=== PATIENT | female | born 1990 | race African-American/Black ===

== ENCOUNTER 2018-12-14 23:01 | Observation (INO) | payer OTHER ==
[2018-12-14] MEDS ORDERED: NS 0.9% 1000 ML** 1,000 ML IV ONE (23:43)
--- NOTE | 2018-12-14 23:57 | ED ---
Syncope/Near Syncope - History Of Current Complaint Chief Complaint: EDDiabeticProb Time Seen by Provider: 12/14/18 23:43 - Allergies/Home Medications Allergies/Adverse Reactions: Allergies Allergy/AdvReac Type Severity Reaction Status Date / Time morphine Allergy Anaphylatic Verified 12/14/18 23:10 Shock Penicillins Allergy Rash Verified 12/14/18 23:10 PMH/Surg Hx/FS Hx/Imm Hx Previously Healthy: Yes Cardiovascular History: Denies: Hx Hypertension Psychiatric History: Reports: Hx Anxiety, Hx Depression - Surgical History Surgical History: Yes Surgery Procedure, Year, and Place: 2 C sections: 11/06/10, 01/27/13,. summer 2008 - Immunization History Immunizations Up to Date: Yes Infectious Disease History: Yes Infectious Disease History: Denies: Traveled Outside the [place] in Last 30 Days - Family History Known Family History: Positive: Diabetes - paternal side - Social History Occupation: Unemployed Lives: With Family Alcohol Use: Rare Hx Substance Use: No Substance Use Type: Reports: None Hx Tobacco Use: No Smoking Status (MU): Never Smoked Tobacco Physical Exam Vital Signs On Initial Exam: Initial Vitals Temp Pulse Resp BP Pulse Ox 97.5 F 80 18 148/94 97 12/14/18 23:09 12/14/18 23:09 12/14/18 23:09 12/14/18 23:09 12/14/18 23:09 Diagnostics - Vital Signs Vital Signs Temp Pulse Resp BP Pulse Ox 12/14/18 23:09 97.5 F 80 18 148/94 97 - Laboratory Lab Statement: Any lab studies that have been ordered have been reviewed, and results considered in the medical decision making process. - Attestation Statements Document Initiated by Scribe: Yes
--- NOTE | 2018-12-15 00:22 | ED ---
HPI Diabetic - HPI Summary HPI Summary: This pt is a 28 Y/O F presenting to [facility] with a CC of high blood sugar. She states that she has been feeling sick the onset of her symptoms. She stated that she had her friend bring over a blood glucose test which found that she had a blood sugar of 600. She stated that her symptoms appeared 3 weeks ago. She states that she has had extreme fatigue, light headedness, insomnia, incontinence and extreme thirst since the onset. She also states that she had a yeast infection 2 weeks ago. She also states that for a week and a half she has been having decreased appetite, nausea, weight loss, and lethargy. One week ago she started experiencing diarrhea and vomiting. She also reports constant stomach aches that are rated a 10/10 in severity, and visual changes described as blurry vision and burning eyes. Per triage her blood glucose level is 779. She has no aggravating or alleviating symptoms. She has a FHx of diabetes on her father side, but she is unsure if they took insulin. - History Of Current Complaint Chief Complaint: EDDiabeticProb Time Seen by Provider: 12/14/18 23:43 Hx Obtained From: Patient Hx Last Menstrual Period: Pt has an implant, 3 years ago Last Known Well Date: 3 weeks ago Onset/Duration: Sudden Onset, Lasting Weeks - 3, Still Present, Worse Since Timing: Constant Severity Initially: Moderate Severity Currently: Severe Character: Lethargic Aggravating: Nothing Alleviating: Nothing Associated Signs & Symptoms: Abdominal Pain, Diarrhea, Nausea, Vomiting, Weight Loss Related History: Other - paternal side has Hx of DM - Allergies/Home Medications Allergies/Adverse Reactions: Allergies Allergy/AdvReac Type Severity Reaction Status Date / Time morphine Allergy Anaphylatic Verified 12/14/18 23:10 Shock Penicillins Allergy Rash Verified 12/14/18 23:10 Home Medications: Home Medications NK [No Home Medications Reported] 12/15/18 [History Confirmed 12/15/18] PMH/Surg Hx/FS Hx/Imm Hx Previously Healthy: Yes Endocrine/Hematology History: Denies: Hx Diabetes Cardiovascular History: Denies: Hx Hypertension - Surgical History Surgical History: Yes Surgery Procedure, Year, and Place: C-sections x2. Infectious Disease History: Yes Infectious Disease History: Denies: Traveled Outside the [place] in Last 30 Days - Family History Known Family History: Positive: Diabetes - paternal side - Social History Occupation: Unemployed Lives: With Family Alcohol Use: Rare Hx Substance Use: No Substance Use Type: Reports: None Hx Tobacco Use: No Smoking Status (MU): Never Smoked Tobacco Review of Systems Constitutional: Other - POSITIVE: light headed, extreme thirst, incontinence, insomnia, weight loss, lethargic Positive: Fatigue Positive: Blurred Vision, Other - POSITIVE: burning sensation in her eyes Gastrointestinal: Other - decreased appetite Positive: Abdominal Pain, Vomiting, Diarrhea, Nausea Positive: Anxious All Other Systems Reviewed And Are Negative: Yes Physical Exam - Summary Physical Exam Summary: General: Well-developed, Obese black female. No acute distress. HEENT: Normocephalic, Atraumatic. Eyes: Conjuctiva normal, PERRL. Ears: TMs within normal limits. Nares: (-) discharge, (-) erythema. Oropharynx: Clear, mucous membranes moist, (-) exudates. Neck: Soft, FROM, (-) lymphadenopathy, (-) thyromegaly, (-) JVD. Cardiovascular: Normal sinus rhythm, (-) murmur. Lungs: Clear to auscultation bilaterally (-) wheezes, (-) rales, (-) rhonchi. Abdomen: Soft, non-tender, non-distended, (-) organomegaly, normal bowel sounds. Back: (-) CVA tenderness Extremities: No edema. Skin: Warm, dry, (-) rash. Neuro: Alert and oriented x3, no focal deficits. Psychiatric: Mood normal, affect normal. Triage Information Reviewed: Yes Vital Signs On Initial Exam: Initial Vitals Temp Pulse Resp BP Pulse Ox 97.5 F 80 18 148/94 97 12/14/18 23:09 12/14/18 23:09 12/14/18 23:09 12/14/18 23:09 12/14/18 23:09 Vital Signs Reviewed: Yes Diagnostics - Vital Signs Vital Signs Temp Pulse Resp BP Pulse Ox 12/15/18 00:00 19 12/14/18 23:47 75 140/90 97 12/14/18 23:46 76 99 12/14/18 23:09 97.5 F 80 18 148/94 97 - Laboratory Lab Results: Lab Results 12/14/18 Range/Units 23:27 Glucose Meter Confirm 774 H* (70-100) mg/dL Result Diagrams: 12/15/18 00:00 12/15/18 00:00 Lab Statement: Any lab studies that have been ordered have been reviewed, and results considered in the medical decision making process. Diabetic Course/Dx - Course Course Of Treatment: This pt is a 28 Y/O F presenting to [facility] with a CC of high blood sugar. She states that she has been feeling sick the onset of her symptoms. She stated that she had her friend bring over a blood glucose test which found that she had a blood sugar of 600. She stated that her symptoms appeared 3 weeks ago. She states that she has had extreme fatigue, light headedness, insomnia, incontinence and extreme thirst since the onset. She also states that she had a yeast infection 2 weeks ago. She also states that for a week and a half she has been having decreased appetite, nausea, weight loss, and lethargy. One week ago she started experiencing diarrhea and vomiting. She also reports constant stomach aches that are rated a 10/10 in severity, and visual changes described as blurry vision and burning eyes. Per triage her blood glucose level is 779. She stated that her paternal side has a Hx of diabetes. Her PE found that she was obese and all other aspects are normal. - Diagnoses Provider Diagnoses: Diabetes - Physician Notifications Discussed Care Of Patient With: Francisco Palomares Time Discussed With Above Provider: 00:30 Instructed by Provider To: Admit As Inpatient Admit/Transition Orders Completed By ED Provider: Yes Discharge ED - Sign-Out/Discharge Documenting (check all that apply): Patient Departure - admited Patient Received Moderate/Deep Sedation with Procedure: No - Discharge Plan Condition: Stable Disposition: ADMITTED TO [facility] Referrals: No Primary Care Phys,NOPCP [Primary Care Provider] - - Billing Disposition and Condition Condition: STABLE Disposition: Admitted to [facility] - Attestation Statements Document Initiated by Scribe: Yes Documenting Scribe: Quinten Reynaga Provider For Whom Scribe is Documenting (Include Credential): Rosa Mathew MD Scribe Attestation: Quinten Armijo, scribed for Rosa Mathew MD on 12/15/18 at 0635. Scribe Documentation Reviewed: Yes Provider Attestation: The documentation as recorded by the Quinten villatoro accurately reflects the service I personally performed and the decisions made by me, Rosa Mathew MD Status of Scribe Document: Viewed
[2018-12-15 00:29] LABS: ABS Basophils 0.1 10^3/ul (0-0.2); ABS Eosinophils 0.1 10^3/ul (0-0.6); ABS Lymphocytes 2.9 10^3/ul (1.0-4.8); ABS Monocytes 0.5 10^3/ul (0-0.8); ABS Neutrophils 3.3 10^3/ul (1.5-7.7); Eosinophil % 1.4 %; Hematocrit 43 % (35-47); Hemoglobin 14.1 g/dL (12.0-16.0); Lymphocyte % 42.4 %; Mean Corpuscular HGB Conc 33 g/dL (31-36); Mean Corpuscular Hemoglobin 28 pg (27-31); Mean Corpuscular Volume 84 fL (80-97); Mean Platelet Volume 11.2 fL (7.4-10.4); Nucleated Red Blood Cells % 0.2; Platelet Count 220 10^3/uL (150-450); Red Cell Distribution Width 15 % (10-15); White Blood Count 6.8 10^3/uL (3.5-10.8)
[2018-12-15 00:34] LABS: INR 0.91 (0.82-1.09)
[2018-12-15] MEDS ORDERED: Ketorolac INJ* 30 MG/ML 1 ML VIAL IV PUSH ONE (00:36)
[2018-12-15] MEDS ORDERED: Ondansetron INJ* 2 MG/ML VIAL IV ONE (00:37)
[2018-12-15 00:46] LABS: Urine Appearance Clear; Urine Bacteria Absent (Absent); Urine Bilirubin Negative (Negative); Urine Blood 1+ (Negative); Urine Color Straw; Urine Glucose 3+(>=500 mg/dL) (Negative); Urine Ketones 1+ (Negative); Urine Nitrite Negative (Negative); Urine Protein Negative (Negative); Urine Red Blood Cell Trace(0-2/hpf) (Absent); Urine Specific Gravity 1.031 (1.010-1.030); Urine Squamous Epithelial Cell Present (Absent); Urine Urobilinogen Negative (Negative); Urine White Blood Cell Absent (Absent)
[2018-12-15 00:52] LABS: ALT 23 U/L (7-52); AST 17 U/L (13-39); Albumin/Globulin Ratio 1.3 (1-3); Alkaline Phosphatase 104 U/L (34-104); Anion Gap 9 mmol/L (2-11); BUN/Creatinine Ratio 9.6 (8-20); Blood Urea Nitrogen 9 mg/dL (6-24); CO2 Carbon Dioxide 26 mmol/L (22-32); Calcium 9.8 mg/dL (8.6-10.3); Chloride 91 mmol/L (101-111); EGFR African American 85.2 (>60); EGFR Non-African American 70.4 (>60); Globulin 3.1 g/dL (2-4); Potassium 4.7 mmol/L (3.5-5.0); Sodium 126 mmol/L (135-145); Total Protein 7.1 g/dL (6.4-8.9)
[2018-12-15 00:55] LABS: Glucose 711 mg/dL (70-100)
[2018-12-15 01:00] LABS: HCG Pregnancy < 0.60 mIU/mL
[2018-12-15] MEDS ORDERED: NS 0.9% 1000 ML** 1,000 ML IV ONE (01:01)
[2018-12-15] MEDS ORDERED: Insulin REGULAR(*) 1 UNITS UNIT IV PUSH ONE ×2 (01:02→01:28)
[2018-12-15] MEDS ORDERED: Insulin Infusion 100unit/100mL 100 UNITS/100 ML UNIT IV SCH (02:00)
--- NOTE | 2018-12-15 07:39 | ED ---
Progress - Progress Note Progress Note: Pt is a signout from Dr. Mathew at 0700 on 12/15/18 pending admission. Course/Dx - Course Course Of Treatment: Pt is a signout from Dr. Mathew at 0700 on 12/15/18 pending admission. I spoke with Dr. Oswald at 0734 to remind her that the pt has not been seen for admission yet, she will come down to evaluate the pt soon. - Diagnoses Provider Diagnoses: Diabetes - Provider Notifications Time Discussed With Above Provider: 00:30 Instructed by Provider To: Admit As Inpatient Admit/Transition Orders Completed By ED Provider: Yes Discharge ED - Sign-Out/Discharge Documenting (check all that apply): Patient Departure, Receiving Sign-Out Receiving patient FROM: Rosa Mathew - Discharge Plan Condition: Stable Disposition: ADMITTED TO [facility] - Attestation Statements Document Initiated by Scribe: Yes Documenting Scribe: Mayelin Gonzalez Provider For Whom Scribe is Documenting (Include Credential): Son Gutierrez MD. Scribe Attestation: I, Mayelin Gonzalez, scribed for Son Gutierrez MD. on 12/15/18 at 1044. Status of Scribe Document: Ready Consult Consult: [id number] - I spoke with Dr. Oswald to remind her that the pt has not been seen for admission yet, she will come down to evaluate the pt soon.
[2018-12-15] MEDS ORDERED: Acetaminophen TAB* 325 MG PO ONE (07:47)
[2018-12-15] MEDS ORDERED: Dextrose 50% VIAL 50 ml IV PUSH PRN (08:07)
[2018-12-15] MEDS ORDERED: Insulin GLARGINE(*) 1 UNITS UNIT SUBCUT ONE (08:18)
[2018-12-15 08:32] LABS: Calcium 8.2 mg/dL (8.6-10.3); Potassium 4.5 mmol/L (3.5-5.0)
[2018-12-15 08:37] LABS: EGFR African American 119.7 (>60); EGFR Non-African American 98.9 (>60)
[2018-12-15 09:37] LABS: Insulin 7.7 mcIU/mL (2.0-16.0)
[2018-12-15] MEDS: Insulin LISPRO* 1 UNITS UNIT SUBCUT SCH ×3 (11:19→23:13)
[2018-12-15] MEDS: NS 0.9% 1000 ML** 1,000 ML IV SCH ×2 (11:20→18:09)
[2018-12-15] MEDS ORDERED: Insulin GLARGINE(*) 1 UNITS UNIT SUBCUT SCH (17:00)
--- NOTE | 2018-12-15 18:52 | HP ---
HISTORY AND PHYSICAL: DATE OF ADMISSION: 12/15/18 TIME OF EVALUATION: 7:55 a.m. PRIMARY CARE PROVIDER: The patient has no primary care provider. CHIEF COMPLAINT: "I have diabetes." HISTORY OF PRESENT ILLNESS: Ms. Bhagat is a [id number] lady with a past medical history of morbid obesity, who presented to the emergency room with complaints of elevated sugar. The patient states that for the past month, she has had progressive fatigue associated with polydipsia, polyuria, polyphagia. She also developed, blurry vision, dizziness, and states those symptoms have progressed to the point that her fatigue is now extreme. She talked to a friend who brought a glucometer and her sugar was measured at 600, so she presented to the emergency room for further evaluation. She describes a month of multiple episodes of skin infection with described abscess in the genital and buttock area. She also has had frequent vaginal yeast infections. She denies fever, chest pain, palpitations, shortness of breath. She has had nausea and vomiting. She had polyuria but no dysuria. In the emergency room, her initial glucose was 774, so the hospitalist service was consulted for further management. PAST MEDICAL HISTORY: 1. Morbid obesity with a BMI of 40. 2. Newly diagnosed diabetes. PAST SURGICAL HISTORY: Status post 2 C-sections. FAMILY HISTORY: The patient states that her father had a history of hypertension and diabetes and multiple family members from her father side of the family have diabetes also. SOCIAL HISTORY: The patient denies history of tobacco, alcohol, or drug use. Surrogate decision maker is her , Donn Bhagat, phone number is [phone]. REVIEW OF SYSTEMS: A 14-point review of systems was performed and all the pertinent negative and positive findings are in the HPI. PHYSICAL EXAMINATION GENERAL: The patient is a young, morbidly obese female, lying in bed, in no acute distress. VITAL SIGNS: Temperature 98.2, heart rate is 76, respiratory rate is 20, oxygen saturation is 96% on room air, blood pressure is 121/81. HEENT: Pupils are equal. Dry mucous membranes. CHEST: Breath sounds present bilaterally with no added sounds. CVS: Normal S1, S2. Regular rate and rhythm. ABDOMEN: Soft. EXTREMITIES: No edema. NEURO: She is alert, awake, and oriented x3. She is able to move all 4 extremities. DIAGNOSTIC STUDIES/LAB DATA: The patient had a CBC that showed a WBC of 6.8, hemoglobin of 14.1, hematocrit of 43, platelets of 220 with 47% neutrophils. INR was 0.91. VBG showed a pH of 7.33, PCO2 of 47, PO2 of less than 38, bicarb of 22.1. Chemistry showed a sodium of 126, potassium 4.7, chloride of 91, bicarb of 26, BUN of 9, creatinine of 0.94, glucose of 711, calcium 9.8. Lactic acid 2.1. LFTs were normal. HCG was less than 0.6. Urinalysis showed 1 + ketones, 1+ blood. ASSESSMENT AND PLAN: Ms. Bhagat is a 28-year-old female with past medical history of morbid obesity, who presents to the emergency room with weeks of fatigue, polyuria, polydipsia, polyphagia, weight loss, blurry vision, now with newly diagnosed diabetes. 1. Diabetes. I suspect the patient probably has type 2 diabetes considering her body habitus and family history. We will check an insulin and C-peptide level on her first blood test done on ED arrival. She does not have any features of DKA and at the time of my interview her glucose is already down to 300s, so I do not see any signs of hyperosmolar nonketotic state. She will be admitted to the medical floor, so we can provide further diabetes management and education. She will be started on Lantus and she will have a Lispro sliding scale. Diabetes education will be provided. Hemoglobin A1c was ordered. I have requested an Endocrinology consultation with Dr. Burleson. 2. DVT prophylaxis: The patient has a score of 1 on the DVT Prophylaxis Assessment Guide and she will have SCDs. 3. Code status is full. TIME SPENT: Approximately 50 minutes was spent with the patient and interview, medical records review, physical examination to complete this admission, more than half of this time was spent [id number] with the patient and coordination of care. [id number]/[facility] #: [id number] MARYCARMEN
[2018-12-15] MEDS ORDERED: Miconazole VAGINAL CREAM 2%* 45 GM VAGINAL SCH (21:00)
[2018-12-15] MEDS ORDERED: Ondansetron INJ* 2 MG/ML VIAL IV PRN (23:30)
[2018-12-15] MEDS ORDERED: LORazepam TAB(*) 1 MG PO PRN (23:30)
[2018-12-16] MEDS: NS 0.9% 1000 ML** 1,000 ML IV SCH ×2 (04:24→11:23)
[2018-12-16] MEDS: Insulin LISPRO* 1 UNITS UNIT SUBCUT SCH ×7 (10:05→17:34)
[2018-12-16] MEDS: Acetaminophen TAB* 325 MG PO PRN (10:05)
[2018-12-16] MEDS: Insulin GLARGINE(*) 1 UNITS UNIT SUBCUT SCH ×2 (10:05→17:33)
--- NOTE | 2018-12-16 11:01 | PN ---
Subjective Date of Service: 12/16/18 Interval History: HOSPITALIST PROGRESS NOTE Patient seen and examined at bedside. Care reviewed and d/w Ronald Thorne RN. She is feeling a little better today. Polydipsia is much improved, blurry vision is still present. Her major complaint is genital pain. States she had some genital pruritus and discharge a couple weeks ago, treated with Fluconazole. When she used Monistat she noticed some skin irritation, and the whole are now feels very swollen and tender. Family History: Unchanged from Admission Social History: Unchanged from Admission Past Medical History: Unchanged from Admission Objective Active Medications: Acetaminophen (Tylenol Tab*) 650 mg PO Q6H PRN PRN Reason: MILD PAIN or TEMP > 100.4 Last Admin: 12/16/18 10:05 Dose: 650 mg Dextrose (Dextrose 50% Vial 50 Ml*) 25 ml IV PUSH .FOR FS < 60 - SS PRN PRN Reason: FS < 60 Sodium Chloride (Ns 0.9% 1000 Ml) 1,000 mls @ 150 mls/hr IV PER RATE [facility] Last Admin: 12/16/18 04:24 Dose: 150 mls/hr Insulin Glargine (Lantus(*)) 25 units SUBCUT 0900,1700 [facility] Last Admin: 12/16/18 10:05 Dose: 25 units Insulin Human Lispro (Humalog*) 0 units SUBCUT ACHS [facility]; Protocol Last Admin: 12/16/18 10:05 Dose: 6 unit Insulin Human Lispro (Humalog*) 0 units SUBCUT AC [facility]; Protocol Last Admin: 12/16/18 10:05 Dose: 1 units Lorazepam (Ativan Tab(*)) 1 mg PO ONCE PRN PRN Reason: ANXIETY Last Admin: 12/15/18 23:43 Dose: 1 mg Miconazole Nitrate (Miconazole Vaginal Cream 2%*) 1 applic VAGINAL BEDTIME [facility] Last Admin: 12/15/18 23:22 Dose: Not Given Ondansetron HCl (Zofran Inj*) 4 mg IV Q6H PRN PRN Reason: NAUSEA/VOMITING Last Admin: 12/15/18 23:43 Dose: 4 mg Vital Signs - 8 hr 12/16/18 12/16/18 12/16/18 03:15 05:48 07:15 Temperature 97.4 F 97.7 F Pulse Rate 69 69 Respiratory 12 12 20 Rate Blood Pressure 95/50 121/79 (mmHg) O2 Sat by Pulse 97 100 Oximetry 12/16/18 08:00 Temperature Pulse Rate Respiratory 20 Rate Blood Pressure (mmHg) O2 Sat by Pulse Oximetry Oxygen Devices in Use Now: None Appearance: Young lady lying in bed in NAD. Eyes: No Scleral Icterus Ears/Nose/Mouth/Throat: Mucous Membranes Moist Neck: Trachea Midline Respiratory: Symmetrical Chest Expansion and Respiratory Effort, Clear to Auscultation Cardiovascular: NL Sounds; No Murmurs; No JVD, RRR Abdominal: NL Sounds; No Tenderness; No Distention Skin: - - External genital exam: white curd like vaginal discharge, with significant labia majora edema. Unable to identify erythema due to skin color Neurological: Alert and Oriented x 3, NL Muscle Strength and Tone Result Diagrams: 12/15/18 00:00 12/15/18 08:09 Assess/Plan/Problems-Billing Assessment: Mrs Bhagat is a 28yo F with PMH of morbid obesity, gender identity disorder, who presented to ED with multiple complaints including fatigue, polyuria, polydipsia , found to have new type 2 DM. - Patient Problems (1) Type 2 diabetes mellitus, uncontrolled Comment: - Endocrinology input appreciated. - Insulin is 7 and c-peptide is 1.1, compatible with type 2. - A1c is 12.5. - Continue Lantus and Lispro SS. - Receiving extensive DM education. (2) Vulvovaginitis Comment: - She certainly has perri vulvovaginitis, but seems to be progressing to bacterial cellulitis. - D/c miconazole vaginal cream as it has caused local irritation in the past. - Will give Fluconazole 150mg PO x 1, and start cefazolin for cellulitis. - If no improvement, may request TOWEL ROLLING MACHINE OPERATOR consult. (3) DVT prophylaxis Comment: - SCDs. (4) Full code status
[2018-12-16] MEDS ORDERED: Fluconazole 150 MG TAB PO ONE (11:08)
[2018-12-16] MEDS: ceFAZolin 1 GM ADVAN(*) 1 GM in NS 0.9% 50 ML* 50 ML IVPB SCH (11:41)
--- NOTE | 2018-12-16 12:21 | PN ---
Subjective - Subjective Reason for Note: Consultation Note History: Endocrinology consultation for new onset Type 2 diabetes mellitus. Loli Bhagat is a 28 year old gender incongruent person who is transitioning to male gender. Pronouns - they/their. Their presentation is detailed in Dr. Nicci Oswald's admitting history and physical. They had multiple symptoms: * heavy limbs - for around 3 weeks * tired as shoon as they woke up * Exhausted "after nothing" * Couldn't eat for a while without feeling full * Weight loss - 8 lbs in 1 week * Insomnia * Dry mouth/excessive thirst * yeast infection - breast, buttocks, vaginal * Cramping - feet/hands * Polyuria and polydipsia * headaches. Risk factors * Positive family history * no hypertension * no dyslipidemia history * no history of steroid use * obesity Diet: They eat carefully at home mostly. No fast food, no dairy. Chicken and fish. However, there is a lot of bread/pasta Exercise: They are restarting weight training and exercise. Active Problems: Active Problems Type 2 diabetes mellitus, uncontrolled (Acute) E11.65 BMI 40.0-44.9, adult (Chronic) Z68.41 Gender identity disorder (Chronic) F64.9 Current Medications: Current Medications Acetaminophen (Tylenol Tab*) 650 mg PO Q6H PRN PRN Reason: MILD PAIN or TEMP > 100.4 Last Admin: 12/16/18 10:05 Dose: 650 mg Dextrose (Dextrose 50% Vial 50 Ml*) 25 ml IV PUSH .FOR FS < 60 - SS PRN PRN Reason: FS < 60 Sodium Chloride (Ns 0.9% 1000 Ml) 1,000 mls @ 150 mls/hr IV PER RATE [facility] Last Admin: 12/16/18 11:23 Dose: 150 mls/hr Cefazolin Sodium 1 gm/ Sodium (Chloride) 50 mls @ 200 mls/hr IVPB Q8H [facility] Last Admin: 12/16/18 11:41 Dose: 200 mls/hr Insulin Glargine (Lantus(*)) 25 units SUBCUT 0900,1700 [facility] Last Admin: 12/16/18 10:05 Dose: 25 units Insulin Human Lispro (Humalog*) 0 units SUBCUT ACHS [facility]; Protocol Last Admin: 12/16/18 10:05 Dose: 6 unit Insulin Human Lispro (Humalog*) 0 units SUBCUT AC [facility]; Protocol Last Admin: 12/16/18 10:05 Dose: 1 units Lorazepam (Ativan Tab(*)) 1 mg PO ONCE PRN PRN Reason: ANXIETY Last Admin: 12/15/18 23:43 Dose: 1 mg Miconazole Nitrate (Miconazole Vaginal Cream 2%*) 1 applic VAGINAL BEDTIME [facility] Last Admin: 12/15/18 23:22 Dose: Not Given - Review of Systems Constitutional Symptoms: Yes: Weight Loss, Fatigue, No: Fever Dermatology: Other: Yes - intertrigo Eyes: Positive: Change in Vision - blurry vision Thyroid: Positive: Constipation, Weight Loss Negative: Goiter, Thyroid Nodule, Cold Intolerance, Heat Intolerance, Sweatiness, Tremor, Frequent Defecation, Palpitations, Primary Hypothyroidism, Change in Skin/Hair, Change in Menstruation Pulmonary: Negative: Cough, Sputum, Respiratory Distress, Shortness of Breath Cardiology: Negative: Chest Pain, Shortness of Breath, Palpitations Gastroenterology: Positive: Abdominal Pain, Nausea, Vomiting, Difficulty Swallowing, Change in Bowel Habits Genital - Urinary: Positive: Polyuria Endocrinology: Negative: Thyroid Problems, Adrenal Problems Neurology: Positive: Headache, Change in Vision Negative: Migraines, Diplopia Psychiatry: Positive: Normal Past Medical History: Georgina 11/06/10 5 lbs at no GDM Azirah 01/27/13 8 lbs. No GDM x 2 CsCx - no other surgeries Hospitalizations: Pulmonary embolism - this has resolved. Comrobidities: Obesity Gender incongruent person - transitioning to male - has a prescription [facility] and hasn't started Asthma as a child. Home Medications: Home Medications Medication Instructions Recorded Confirmed Type NK [No Home Medications Reported] 12/15/18 12/15/18 History Allergies: Allergies Allergy/AdvReac Type Severity Reaction Status Date / Time morphine Allergy Anaphylatic Verified 12/14/18 23:10 Shock Penicillins Allergy Rash Verified 12/14/18 23:10 - Family History Family History: Father T2D - murdered Mother no T2D, but hypertensive T2D - paternal uncle, brother and grandmother Obesity - mother and maternal grandmother No other endocrinopathy or autoimmune disease - Social History Social History: Tobacco - quit Alcohol -rarely Household - Donn and 2 children. Occupation: [employer] Objective - Vital Signs Vital Signs: Vital Signs 12/15/18 12/15/18 12/15/18 15:15 20:00 20:03 Temperature 97.5 F 97.3 F Pulse Rate 73 66 Respiratory 16 20 20 Rate Blood Pressure 139/74 130/72 (mmHg) O2 Sat by Pulse 100 100 Oximetry 12/15/18 12/15/18 12/16/18 23:12 23:43 03:15 Temperature 97.1 F 97.4 F Pulse Rate 74 69 Respiratory 12 14 12 Rate Blood Pressure 128/66 95/50 (mmHg) O2 Sat by Pulse 100 97 Oximetry 12/16/18 12/16/18 12/16/18 05:48 07:15 08:00 Temperature 97.7 F Pulse Rate 69 Respiratory 12 20 20 Rate Blood Pressure 121/79 (mmHg) O2 Sat by Pulse 100 Oximetry - Intake and Output Intake and Output: Intake & Output 12/14/18 12/15/18 12/16/18 12/17/18 11:59 11:59 11:59 11:59 Intake Total 3008.4 3381 Output Total 0 Balance 3008.4 3381 Weight 220 lb 253 lb 3.2 oz Intake: IV Fluids 3008.4 2901 NS (0.9%) 2114 Oral 480 Output: Urine 0 ADLs: Meal Record Start: 12/15/18 10: 36 Freq: DAILY@0900,1400,1800 Status: Active Protocol: Created 12/15/18 10:36 System (Rec: 12/15/18 10:36 System [id number]) Document 12/15/18 13:26 [id number] (Rec: 12/15/18 13:27 [id number] TELE-C01) Document 12/15/18 18:00 [id number] (Rec: 12/15/18 22:21 [id number] TELE-C08) Document 12/16/18 09:00 [id number] (Rec: 12/16/18 10:58 [id number] MED-M02) Intake and Output Start: 12/14/18 23: 16 Freq: Status: Active Protocol: Created 12/14/18 23:16 System (Rec: 12/14/18 23:16 System [id number]) Intake and Output Start: 12/15/18 10: 36 Freq: DAILY@0600,1400,2200 Status: Active Protocol: Created 12/15/18 10:36 System (Rec: 12/15/18 10:36 System [id number]) Document 12/15/18 14:00 [id number] (Rec: 12/15/18 14:37 [id number] TELE-C01) Document 12/15/18 22:00 [id number] (Rec: 12/15/18 22:22 [id number] TELE-C08) Document 12/16/18 05:29 [id number] (Rec: 12/16/18 05:29 [id number] TELE-C35) - Physical Exam General Physical Exam Comment: obese with BMI 41. General: No Cyanosis, No Anemia, No Jaundice, No Lymphadenopathy, No Clubbing Skin: Normal: Rash Head: Yes Normocephalic Neck: No Cervical Adenopathy, No SupraclavicularAdenopathy, No Neck Masses Thyroid Function: Clinically Euthyroid -: No Tremor, No Goiter, No Thyroid Nodule, No Thyroid Bruit, No Thyroid Tenderness, No Hoarseness, No Cervical adenopathy, No Supraclav. adenopathy, No Proptosis, No Conjunctival Injection, No Lid Lag, No Periorbital Edema, No Dysconjugate Eye Movement Endocrine: Yes Central Obesity, No Hirsuitism, No Virilism, No Acromegaly, No Vitiligo, No Flushing, No Acanthosis nigricans, No Violaceious striae, No Frances Syndrome, No Buccal pigmenatation Lungs and Chest: Yes: Chest Expansion Full, Chest Expansion Symetrica, Percussion Note Resonant, Vessicular Breath Sounds. No: Crackles, Wheezes, Respiratory Distress Heart Rate and Rhythm: Normal JVP: Not Elevated Additional Cardiovascular: Yes: Normal Heart Sounds. No: Heart Murmur, Carotid Bruits, Pedal Edema Abdominal Exam: Yes: Soft, Bowel Sounds Present. No: Distention, Rigidity, Abdominal Mass, Hepatomegaly, Splenomegaly, Abdominal Tenderness, Guarding, Rebound Tenderness - Extremities Cranial Nerves II-XII Intact: Yes Limbs: Normal Power, Normal Tone - Neuro Orientation: A/O x3 Psychiatric: Normal Speech: Normal Results - Results Lab Results: Laboratory Results - last 24 hr 12/15/18 12/15/18 12/15/18 08:08 14:09 22:33 POC Glucose (mg/dL) 317 H 246 H Hemoglobin A1c 12.5 H 12/16/18 12/16/18 07:34 11:50 POC Glucose (mg/dL) 234 H 291 H Hemoglobin A1c Laboratory Tests 12/14/18 12/15/18 12/15/18 23:27 00:00 00:00 WBC 6.8 Hgb 14.1 Hct 43 Plt Count 220 Neut % (Auto) 47.9 Sodium 126 L Potassium 4.7 Chloride 91 L Carbon Dioxide 26 Anion Gap 9 BUN 9 Creatinine 0.94 Est GFR ( Amer) 85.2 BUN/Creatinine Ratio 9.6 Glucose Meter Confirm 774 H* Insulin Level 7.7 Lactic Acid Calcium 9.8 Total Bilirubin 0.40 AST 17 ALT 23 Alkaline Phosphatase 104 Total Protein 7.1 Albumin 4.0 Globulin 3.1 Albumin/Globulin Ratio 1.3 Beta HCG, Quant < 0.60 Ur Specific Sublimity Urine Ketones Urine Blood 12/15/18 12/15/18 00:00 00:20 WBC Hgb Hct Plt Count Neut % (Auto) Sodium Potassium Chloride Carbon Dioxide Anion Gap BUN Creatinine Est GFR ( Amer) BUN/Creatinine Ratio Glucose Meter Confirm Insulin Level Lactic Acid 2.1 H* Calcium Total Bilirubin AST ALT Alkaline Phosphatase Total Protein Albumin Globulin Albumin/Globulin Ratio Beta HCG, Quant Ur Specific Sublimity 1.031 H Urine Ketones 1+ A Urine Blood 1+ A Assessment - Problem List Assessment: Patient Problems Type 2 diabetes mellitus, uncontrolled (Acute) BMI 40.0-44.9, adult (Chronic) Gender identity disorder (Chronic) Plan: Type 2 diabetes mellitus, uncontrolled (Acute) Loli Bhagat presents with new onset type 2 diabetes mellitus. They are currently receiving insulin therapy and IVF. They are starting to eat and drink. They are likely to be "glucose- toxic" - her insulin levels are measurable (before she received insulin therapy ) making the diagnosis likely to be T2D. However, oral agents are unlikely to be helpful until their beta cells are able to manufacture and secrete insulin appropriately. I will check their cortisol to rule out Mansfield syndrome - but they have a strong family history of T2D. I will check their GAD65 abs and IA2 antibodies Here is their management plan: * Basal/bolus insulin regimen at first in order to bring her glucose levels back below 200 mg/dl. * Start metformin 500 mg po bid * Teach diabetes self management - self monitoring of blood glucose, insulin injections, hypoglycemia * Discuss the pathophysiology of T2D * Dietitian to discuss carb counting, consistent carb diet * Importance of daily exercise (they are keen on this - would benefit from both aerobic and resistant training). * Emotional support for new diagnosis. BMI 40.0-44.9, adult (Chronic) Gradual and sustainable weight loss - initial target 5% body mass at 2 lbs per month. We are likely to start her on an SGLT2 antagonist plus or minus a GLP-1 agonist as an outpatient. Gender identity disorder (Chronic) They are [facility] being [facility]. I am happy to be involved in any way that will help. I explained the above to the patient
[2018-12-17] MEDS: ceFAZolin 1 GM ADVAN(*) 1 GM in NS 0.9% 50 ML* 50 ML IVPB SCH ×4 (04:07→21:57)
[2018-12-17] MEDS: Insulin LISPRO* 1 UNITS UNIT SUBCUT SCH ×8 (04:07→21:58)
[2018-12-17] MEDS: Acetaminophen TAB* 325 MG PO PRN ×2 (04:23→09:40)
[2018-12-17 08:23] LABS: BUN/Creatinine Ratio 12.3 (8-20); Calcium 8.5 mg/dL (8.6-10.3); EGFR African American 130.4 (>60); EGFR Non-African American 107.8 (>60); Potassium 3.9 mmol/L (3.5-5.0)
[2018-12-17] MEDS: metFORMIN* 500 MG TAB PO SCH ×2 (09:39→18:11)
[2018-12-17] MEDS: Insulin GLARGINE(*) 1 UNITS UNIT SUBCUT SCH ×2 (09:42→18:12)
[2018-12-17] MEDS: Docusate CAP* 100 MG PO PRN (16:47)
--- NOTE | 2018-12-17 16:52 | PN ---
Subjective Date of Service: 12/17/18 Interval History: Patient still felt itchiness and swelling around vaginal area, symptoms stayed the same from yesterday. She recalled the symptoms had been there since 2 weeks ago, she [facility]. She also complained of cloudy urine since admission thus concerned about urine tract infection. Objective Active Medications: Acetaminophen (Tylenol Tab*) 650 mg PO Q6H PRN PRN Reason: MILD PAIN or TEMP > 100.4 Last Admin: 12/17/18 09:40 Dose: 650 mg Dextrose (Dextrose 50% Vial 50 Ml*) 25 ml IV PUSH .FOR FS < 60 - SS PRN PRN Reason: FS < 60 Docusate Sodium (Colace Cap*) 100 mg PO DAILY PRN PRN Reason: CONSTIPATION Cefazolin Sodium 1 gm/ Sodium (Chloride) 50 mls @ 200 mls/hr IVPB Q8H [facility] Last Admin: 12/17/18 11:09 Dose: 200 mls/hr Insulin Glargine (Lantus(*)) 28 units SUBCUT 0900,1700 [facility] Insulin Human Lispro (Humalog*) 0 units SUBCUT ACHS [facility]; Protocol Last Admin: 12/17/18 13:18 Dose: 9 unit Insulin Human Lispro (Humalog*) 0 units SUBCUT AC [facility]; Protocol Last Admin: 12/17/18 13:18 Dose: 3 units Metformin HCl (Glucophage*) 500 mg PO 0800,1700 [facility] Last Admin: 12/17/18 09:39 Dose: 500 mg Vital Signs - 8 hr 12/17/18 12/17/18 12:21 15:15 Temperature 98.2 F 97.1 F Pulse Rate 74 79 Respiratory 16 20 Rate Blood Pressure 142/95 118/63 (mmHg) O2 Sat by Pulse 100 100 Oximetry Oxygen Devices in Use Now: None Exam: Oxygen Devices in Use Now: None Appearance: NAD Eyes: No Scleral Icterus, PERRLA Ears/Nose/Mouth/Throat: NL Teeth, Lips, Gums, Clear Oropharnyx Neck: NL Appearance and Movements; NL JVP, Trachea Midline Respiratory: Symmetrical Chest Expansion and Respiratory Effort, no crackles and rhonchis Cardiovascular: NL Sounds; No Murmurs; No JVD, RRR Abdominal: NL Sounds; No Tenderness; No Distention Lymphatic: No Cervical Adenopathy Extremities: no peripheral edema Neurological: Alert and Oriented x 3 Genital: swelling around bilateral labia major seen, no discharge seen, mildly warm, not red Result Diagrams: 12/15/18 00:00 12/17/18 08:01 Additional Lab and Data: Lab Results 12/14/18 Range/Units 23:27 Glucose Meter Confirm 774 H* (70-100) mg/dL Assess/Plan/Problems-Billing Assessment: Mrs Bhagat is a 28yo F with PMH of morbid obesity, gender identity disorder, who presented to ED with multiple complaints including fatigue, polyuria, polydipsia , found to have new type 2 DM. Also had prolonged vaginal yeast infection since 2 weeks ago, not improving with monistat and diflucan. - Patient Problems (1) Type 2 diabetes mellitus, uncontrolled Current Visit: Yes Status: Acute Code(s): E11.65 - TYPE 2 DIABETES MELLITUS WITH HYPERGLYCEMIA SNOMED Code(s): 148469418 Comment: - Insulin is 7 and c-peptide is 1.1, compatible with type 2. - A1c is 12.5. - Started Metformin, Continue Lantus and Lispro SS, increased Lantus dose to 28U bid today from 25U - Receiving extensive DM education. (2) Vulvovaginitis Current Visit: Yes Status: Acute Code(s): N76.0 - ACUTE VAGINITIS SNOMED Code(s): 61709110 Comment: - She has presumed perri vulvovaginitis treated with monistat and diflucan, but seems not resolving, possibly genital cellulitis - one dose of Fluconazole was given this admission, and start cefazolin for possible cellulitis observed - Speculum exam today showed erythematous cervix with whitish discharge, tender to touch; swab and std test sent - If no improvement, may request PATROL INSPECTOR consult. (3) Gender identity disorder Current Visit: Yes Status: Chronic Code(s): F64.9 - GENDER IDENTITY DISORDER , UNSPECIFIED SNOMED Code(s): 29234288 Comment: Transitioning to male. [facility] and hasn't started (4) DVT prophylaxis Current Visit: Yes Status: Acute Code(s): Z29.9 - ENCOUNTER FOR PROPHYLACTIC MEASURES, UNSPECIFIED SNOMED Code(s): 908299098 Comment: - SCDs. (5) Full code status Current Visit: Yes Status: Acute Code(s): Z78.9 - OTHER SPECIFIED HEALTH STATUS SNOMED Code(s): 755550311 Status and Disposition: Inpatient Medicine, need to get glucose more controlled Attestation Documenting Resident: Suzette Talley Supervising Physician: Derrick Saucedo Attending/Supervising Physician Comment: Agree with plan as outlined in note by Dr. Talley unless indicated here. Vulvovaginitis with superimposed cellulitis Cefazolin for genital cellulitis improving Received 1 dose fluconazole 12/16 Newly dx'ed DM2 on basal bolus insulin regimen. Lantus increased from 25 BID to 28 BID and added metformin GC/Chlamydia pending Attestation: This service has been performed in part by a resident under the direction of a teaching physician.I, Derrick Saucedo, performed the service, or was physically present during the critical, or cadet portions of the service, furnished by the resident. I participated in the management of the patient.
[2018-12-18] MEDS: Docusate CAP* 100 MG PO PRN (00:42)
[2018-12-18] MEDS: ceFAZolin 1 GM ADVAN(*) 1 GM in NS 0.9% 50 ML* 50 ML IVPB SCH ×2 (03:35→12:46)
--- NOTE | 2018-12-18 08:41 | PN ---
Subjective - Subjective Reason for Note: Consultation Note History: Endocrinology follow up note: She is improving in her glycemic control and has coped well with self injection of insulin. She has had no hypoglycemia. She is no longer symptomatic - no polyuria/polydiipsia Active Problems: Active Problems DVT prophylaxis (Acute) Z29.9 - SCDs. Full code status (Acute) Z78.9 Type 2 diabetes mellitus, uncontrolled (Acute) E11.65 - Insulin is 7 and c-peptide is 1.1, compatible with type 2. - A1c is 12.5. - Started Metformin, Continue Lantus and Lispro SS, increased Lantus dose to 28U bid today from 25U - Receiving extensive DM education. Vulvovaginitis (Acute) N76.0 - She has presumed perri vulvovaginitis treated with monistat and diflucan, but seems not resolving, possibly genital cellulitis - one dose of Fluconazole was given this admission, and start cefazolin for possible cellulitis observed - Speculum exam today showed erythematous cervix with whitish discharge, tender to touch; swab and std test sent - If no improvement, may request TELEVISION ACTOR consult. BMI 40.0-44.9, adult (Chronic) Z68.41 Gender identity disorder (Chronic) F64.9 Transitioning to male. [facility] and hasn't started Current Medications: Current Medications Acetaminophen (Tylenol Tab*) 650 mg PO Q6H PRN PRN Reason: MILD PAIN or TEMP > 100.4 Last Admin: 12/17/18 09:40 Dose: 650 mg Dextrose (Dextrose 50% Vial 50 Ml*) 25 ml IV PUSH .FOR FS < 60 - SS PRN PRN Reason: FS < 60 Docusate Sodium (Colace Cap*) 100 mg PO DAILY PRN PRN Reason: CONSTIPATION Last Admin: 12/18/18 00:42 Dose: 100 mg Cefazolin Sodium 1 gm/ Sodium (Chloride) 50 mls @ 200 mls/hr IVPB Q8H [facility] Last Admin: 12/18/18 03:35 Dose: 200 mls/hr Insulin Glargine (Lantus(*)) 28 units SUBCUT 0900,1700 [facility] Last Admin: 12/17/18 18:12 Dose: 28 unit Insulin Human Lispro (Humalog*) 0 units SUBCUT ACHS [facility]; Protocol Last Admin: 12/17/18 21:58 Dose: 3 unit Insulin Human Lispro (Humalog*) 0 units SUBCUT AC [facility]; Protocol Last Admin: 12/17/18 18:12 Dose: 2 units Metformin HCl (Glucophage*) 500 mg PO 0800,1700 [facility] Last Admin: 12/17/18 18:11 Dose: 500 mg Home Medications: Home Medications Medication Instructions Recorded Confirmed Type NK [No Home Medications Reported] 12/15/18 12/15/18 History Allergies: Allergies Allergy/AdvReac Type Severity Reaction Status Date / Time morphine Allergy Anaphylatic Verified 12/14/18 23:10 Shock Penicillins Allergy Rash Verified 12/14/18 23:10 - Social History Occupation: [employer] Objective - Vital Signs Vital Signs: Vital Signs 12/17/18 12/17/18 12/17/18 12:21 15:15 19:15 Temperature 98.2 F 97.1 F 97.2 F Pulse Rate 74 79 72 Respiratory 16 20 18 Rate Blood Pressure 142/95 118/63 115/69 (mmHg) O2 Sat by Pulse 100 100 100 Oximetry 12/17/18 12/18/18 23:15 03:15 Temperature 98.1 F 97.9 F Pulse Rate 76 67 Respiratory 24 22 Rate Blood Pressure 159/97 121/71 (mmHg) O2 Sat by Pulse 100 98 Oximetry - Intake and Output Intake and Output: Intake & Output 12/15/18 12/16/18 12/17/18 12/18/18 11:59 11:59 11:59 11:59 Intake Total 3008.4 3381 1102 1115 Output Total 0 Balance 3008.4 3381 1102 1115 Weight 220 lb 253 lb 3.2 oz 251 lb Intake: IV Fluids 3008.4 2901 322 55 NS (0.9%) 2114 IVPB 50 100 Oral 480 730 960 Output: Urine 0 Other: Estimated Void Medium # Voids 2 ADLs: Meal Record Start: 12/15/18 10: 36 Freq: DAILY@0900,1400,1800 Status: Active Protocol: Created 12/15/18 10:36 System (Rec: 12/15/18 10:36 System [id number]) Document 12/15/18 13:26 [id number] (Rec: 12/15/18 13:27 [id number] TELE-C01) Document 12/15/18 18:00 [id number] (Rec: 12/15/18 22:21 [id number] TELE-C08) Document 12/16/18 09:00 [id number] (Rec: 12/16/18 10:58 [id number] MED-M02) Document 12/16/18 18:00 [id number] (Rec: 12/16/18 20:37 [id number] TELE-C01) Document 12/17/18 14:00 [id number] (Rec: 12/17/18 14:11 [id number] TELE-C05) Intake and Output Start: 12/14/18 23: 16 Freq: Status: Active Protocol: Created 12/14/18 23:16 System (Rec: 12/14/18 23:16 System ED-C24) Intake and Output Start: 12/15/18 10: 36 Freq: DAILY@0600,1400,2200 Status: Active Protocol: Created 12/15/18 10:36 System (Rec: 12/15/18 10:36 System RU-C07) Document 12/15/18 14:00 [id number] (Rec: 12/15/18 14:37 [id number] TELE-C01) Document 12/15/18 22:00 [id number] (Rec: 12/15/18 22:22 [id number] TELE-C08) Document 12/16/18 05:29 [id number] (Rec: 12/16/18 05:29 [id number] TELE-C35) Document 12/16/18 21:53 [id number] (Rec: 12/16/18 21:53 [id number] TELE-C09) Document 12/17/18 06:00 [id number] (Rec: 12/17/18 06:07 [id number] TELE-C05) Document 12/17/18 14:00 [id number] (Rec: 12/17/18 14:56 [id number] TELE-C05) Document 12/17/18 22:00 [id number] (Rec: 12/17/18 22:54 [id number] TELE-C09) Document 12/18/18 06:00 [id number] (Rec: 12/18/18 06:06 [id number] TELE-C35) Results - Results Lab Results: Laboratory Results - last 24 hr 12/17/18 12/17/18 12/17/18 12:23 17:07 21:49 POC Glucose (mg/dL) 259 H 190 H 200 H 12/18/18 07:45 POC Glucose (mg/dL) 208 H Assessment - Problem List Assessment: Patient Problems DVT prophylaxis (Acute) Full code status (Acute) Type 2 diabetes mellitus, uncontrolled (Acute) Vulvovaginitis (Acute) BMI 40.0-44.9, adult (Chronic) Gender identity disorder (Chronic) Plan: She is adjusting well to the diagnosis of T2D. I provided further education: * the timeline of glucose toxicity * the aim to bring glucose levels down slowly * from my point of view they are ready to go home and I would not increase their insulin further as their is likely to be more active and this may risk hypoglycemia * I discussed changing to insulin pen devices - I strongly recommend these are prescribed. Their insurance may want her on particular pen devices. I suggest you ask the pharmacy which ones will go with her insurance (basal insulin pens - basaglar, lantus or levemir, bolus insulin pens humalog, admelog or novolog). I told them to use instructional videos online to learn how to self inject. They can also come into my office for education * I explained the benefits and adverse effects of metformin * I discussed the subsequent usage of a GLP-1 agonist dulatglutide (trulicity). This will help them metabolically Gender transition therapy: * I reassured them that there is no adverse interaction between T2D management and gender affirming therapy - testosterone in their case * I explained that we can off gender affirming therapy at my endocrine office.
[2018-12-18] MEDS: Insulin GLARGINE(*) 1 UNITS UNIT SUBCUT SCH (09:28)
[2018-12-18] MEDS: Insulin LISPRO* 1 UNITS UNIT SUBCUT SCH ×4 (09:29→13:23)
[2018-12-18] MEDS ORDERED: Bisacodyl SUPP* 10 MG SUPP PR ONE (09:31)
[2018-12-18] MEDS: metFORMIN* 500 MG TAB PO SCH (09:31)
[2018-12-18] MEDS ORDERED: Lidocaine 2% JELLY* 6 ML JELLY TOPICAL ONE (09:32)
[2018-12-18 11:17] VITALS: BP 108/67
[2018-12-18] MEDS ORDERED: Lidocaine 2% JELLY* 5 ML TUBE LIDO2GEL7 TOPICAL ONE (11:44)
--- NOTE | 2018-12-18 11:52 | PN ---
Subjective Date of Service: 12/18/18 Interval History: HD 4 12/18 28 F2M transgender they/them/theirs, goes by "Loli", presents with new onset DM in setting of morbid obesity. Started on insulin, hospital course c/b constipation and PID vs vulvar cellulitis Overnight VSS no acute events Labs: BG this AM 208 Last Bm > 5 days ago This morning, abd pain and rectal pain, rectal exam done, external hemmorhoids and hard stool in vault, disimpacted w relief. Otherwise doing OK, tolerating diet, ambulating, able to void s/p above procedure. Family History: Unchanged from Admission Social History: Unchanged from Admission Past Medical History: Unchanged from Admission Objective Active Medications: Acetaminophen (Tylenol Tab*) 650 mg PO Q6H PRN PRN Reason: MILD PAIN or TEMP > 100.4 Last Admin: 12/17/18 09:40 Dose: 650 mg Dextrose (Dextrose 50% Vial 50 Ml*) 25 ml IV PUSH .FOR FS < 60 - SS PRN PRN Reason: FS < 60 Docusate Sodium (Colace Cap*) 100 mg PO DAILY PRN PRN Reason: CONSTIPATION Last Admin: 12/18/18 00:42 Dose: 100 mg Cefazolin Sodium 1 gm/ Sodium (Chloride) 50 mls @ 200 mls/hr IVPB Q8H [facility] Last Admin: 12/18/18 03:35 Dose: 200 mls/hr Insulin Glargine (Lantus(*)) 28 units SUBCUT 0900,1700 [facility] Last Admin: 12/18/18 09:28 Dose: 28 unit Insulin Human Lispro (Humalog*) 0 units SUBCUT ACHS [facility]; Protocol Last Admin: 12/18/18 09:29 Dose: 6 unit Insulin Human Lispro (Humalog*) 0 units SUBCUT AC [facility]; Protocol Last Admin: 12/18/18 09:30 Dose: 3 units Lidocaine HCl (Lidocaine 2% Jelly*) 1 applic TOPICAL ONCE ONE Stop: 12/18/18 11:45 Metformin HCl (Glucophage*) 500 mg PO 0800,1700 [facility] Last Admin: 12/18/18 09:31 Dose: 500 mg Vital Signs - 8 hr 12/18/18 12/18/18 07:28 11:15 Temperature 97.2 F 97.9 F Pulse Rate 70 69 Respiratory 20 20 Rate Blood Pressure 109/67 108/67 (mmHg) O2 Sat by Pulse 100 100 Oximetry Oxygen Devices in Use Now: None Appearance: Pleasant in NAD Eyes: No Scleral Icterus Ears/Nose/Mouth/Throat: NL Teeth, Lips, Gums Neck: NL Appearance and Movements; NL JVP Respiratory: Symmetrical Chest Expansion and Respiratory Effort Cardiovascular: NL Sounds; No Murmurs; No JVD, RRR Abdominal: NL Sounds; No Tenderness; No Distention, No Hepatosplenomegaly, - - Hard stool in rectal vault small palpable hemmorhoid 6 oclock not thrombosed Lymphatic: No Cervical Adenopathy Extremities: No Edema Skin: No Rash or Ulcers Neurological: Alert and Oriented x 3 Result Diagrams: 12/15/18 00:00 12/17/18 08:01 Microbiology and Other Data: Microbiology 12/17/18 14:06 Gardnerella DNA Probe - Final Vaginal Negative Gardnerella Negative Danielle Assess/Plan/Problems-Billing Assessment: 28 F2M transgender he/him/his, goes by "Loli", presents with new onset DM in setting of morbid obesity. Started on insulin, hospital course c/b constipation , possible vaginitis. - Patient Problems (1) Type 2 diabetes mellitus, uncontrolled Current Visit: Yes Status: Acute Code(s): E11.65 - TYPE 2 DIABETES MELLITUS WITH HYPERGLYCEMIA SNOMED Code(s): 063253059 Comment: - A1c is 12.5. - Started Metformin, Continue Lantus and Lispro SS, increased Lantus dose to 28U bid today from 25U, d/c on basaglar 28 U BID and Metformin - Receiving extensive DM education. - Following with Dr. Burleson as outpt (2) Vulvovaginitis Current Visit: Yes Status: Acute Code(s): N76.0 - ACUTE VAGINITIS SNOMED Code(s): 09874212 Comment: - She has presumed danielle vulvovaginitis treated with monistat and diflucan, but seems not resolving, possibly genital cellulitis vs PID, will tx empriricaly for PID - one dose of Fluconazole was given this admission, and start cefazolin for possible cellulitis observed on vaginal exam, AFFIRM neg for gardernella, now treating for presumed PID change to oral Doxy (3) BMI 40.0-44.9, adult Current Visit: Yes Status: Chronic Code(s): Z68.41 - BODY MASS INDEX (BMI) 40.0-44.9, ADULT SNOMED Code(s): 578134554 Comment: - nutrition counsleing (4) Gender identity disorder Current Visit: Yes Status: Chronic Code(s): F64.9 - GENDER IDENTITY DISORDER , UNSPECIFIED SNOMED Code(s): 43811338 Comment: - Transitioning to male. [facility] and hasn't started (5) Constipation Current Visit: Yes Status: Acute Code(s): K59.00 - CONSTIPATION, UNSPECIFIED SNOMED Code(s): 82978557 Comment: - Hospital aquired, s/p Dulcolax now disimpaction, x1 enema and if able to void may be d/c (6) DVT prophylaxis Current Visit: Yes Status: Acute Code(s): Z29.9 - ENCOUNTER FOR PROPHYLACTIC MEASURES, UNSPECIFIED SNOMED Code(s): 506513388 Comment: - SCDs. (7) Full code status Current Visit: Yes Status: Acute Code(s): Z78.9 - OTHER SPECIFIED HEALTH STATUS SNOMED Code(s): 182617779 Status and Disposition: Likely stable for d/c
[2018-12-18] MEDS ORDERED: DOXYcycline CAP(*) 100 MG PO SCH (13:00)
[2018-12-18 13:49] LABS: Chlamydia trachomatis NAA Negative (Negative); Neisseria gonorrhoeae (GC) NAA Negative (Negative)
--- NOTE | 2018-12-18 15:52 | DS ---
CC: Dr. Ja Burleson; [facility] DISCHARGE SUMMARY: DATE OF ADMISSION: 12/15/18 DATE OF DISCHARGE: 12/18/18 CAMP ATTENDANT: Dr. Ja Burleson. PRIMARY CARE PHYSICIAN: The patient has no primary care physician. DISPOSITION AT THE TIME OF DISCHARGE: Stable, discharged to home. PRIMARY DIAGNOSIS: New-onset insulin-dependent diabetes with associated hyperglycemia. SECONDARY DIAGNOSES: 1. Morbid obesity. 2. 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 3. Vulvovaginitis, possible pelvic inflammatory disease. 4. Constipation. MEDICATIONS AT THE TIME OF DISCHARGE: 1. Metformin 500 mg p.o. b.i.d. 2. Insulin glargine 28 units subcutaneous b.i.d. 3. Doxycycline 100 mg p.o. b.i.d. for an additional 10 days status post discharge. 4. Docusate 100 mg p.o. daily p.r.n. Medication changes at the time of discharge include the addition of all the above. The patient was on no medications prior to this hospitalization. Furthermore, the patient was also discharged with blo od sugar diagnostic test strips kit, pen, needles, lancets and other testing supplies as confirmed by Lexi Braxton. HISTORY OF PRESENT ILLNESS AND HOSPITAL COURSE: A 28-year-old female to male transgendered person pr esented to the emergency room on 12/15/18 with complaint of nausea, polyuria, polydipsia, concern for "I have diabetes" and was found to be hyperglycemic to the 700s without gap, no evidence of hyperosm olar status or DKA, although A1c was found to be 12.5, also with complaint of longstanding vulvovagin itis and possible PID, was admitted for stabilization of acute hyperglycemia and to be started on ins ulin given blood glucose 770 in the emergency room. Hospital course by problem is as follows: 1. Diabetes. This was presumed to be type 2 diabetes and Endocrine was consulted, who concurred wit h insulin-dependent type 2 diabetes. Has an A1c of 12.5. She was treatment-naive. Lantus was start ed and titrated to 28 units b.i.d. with significant control of blood glucose with most fasting a.m. b lood sugars 150 to 200. They had no subsequent hypoglycemia. Furthermore, metformin was started at low dose 500 mg p.o. b.i.d. and was tolerated well, can be titrated as an outpatient. 2. Vulvovaginitis, possible PID. The patient had complaint of irritation to vulva. Presumed yeast vulvovaginitis had been made at [facility] and the patient had taken Diflucan as an outpatien t, although had not had response. The vulva and speculum exam on 12/16/18 revealed tender cervix wit h erythema and some cervical motion tenderness as well as swelling to vulva. GC, chlamydia and testi ng for BV as well as yeast infection was sent. BV was negative. Perri was negative. GC testing i s pending at the time of discharge, although the patient was treated empirically for PID as well as v ulvar cellulitis with doxycycline and ceftriaxone 1 dose. 3. Constipation. Hospital course was complicated by constipation. The patient was on docusate, rec eived Dulcolax suppository and ultimately needed x1 fecal disimpaction on 12/18/18. The patient was able to successfully to have a large bowel movement after disimpaction without complications. 4. Obesity. The patient was counseled on nutrition. 5. Gender identity disorder. The patient is currently on hormone replacement therapy through [facility] and was prescribed testosterone, but has not currently started hormone replacement thera py at this time. On the day of discharge, the patient is voiding, tolerating diet and has had extensive diabetes educa tion, was able to give themselves insulin successfully, can successfully check their own sugars. All testing supplies, kits, as well as insulin was prescribed to home pharmacy and prior authorizations were done prior to discharge. LABS AND STUDIES DONE DURING THIS HOSPITALIZATION: Labs on 12/15/18 showed again blood glucose of 71 1, normal creatinine, lactic acid mildly elevated at 2.1. CBC unremarkable. VBG showed compensated pH. Subsequent labs showed A1c of 12.5. Normal BMP on 12/15/18 with blood glucose varying between 18 0 and 215 on fingersticks. Urinalysis unremarkable other than for glucose. Micro with negative justus nerella, negative perri; pending gonorrhea and chlamydia. No imaging was done during this hospitalization. CONSULTANTS: Included Endocrinology. ITEMS TO FOLLOW UP ON STATUS POST DISCHARGE: 1. Newly diagnosed insulin-dependent diabetes in the setting of obesity and type 2. The patient should have followup with [facility]. They were prescribed insulin glargine and instructed to use 28 units subcutaneously and to be further titrated by Endocrine referral as wel l as primary care. Metformin can be up titrated as well from 500 mg to goal of 1000 mg b.i.d. 2. Vulvovaginitis, PID. The patient with cervical motion tenderness on exam. GC, chlamydia pending testing, but treated empirically with ceftriaxone and will be treated with doxycycline for a total o f 10 days, which should cover both vulvar cellulitis as well as possible PID. Treat empirically give n ongoing symptoms. 3. Constipation. The patient struggled with in-hospital constipation that resolved spontaneously on the day of discharge, was prescribed p.r.n. docusate as needed for outpatient, encouraged to drink f luids and move bowels regularly. 4. Transgender status. The patient is to start hormone replacement therapy [facility], can be continued to do so, although should have primary care to manage type 2 diabetes. Plan of care was discussed with the patient, who agrees with discharge to home and is stable to do so . They have no further questions. TIME SPENT: Forty-five minutes was spent on the planning of this discharge with over half of that sp ent directly at the bedside of the patient providing direct patient care. Plan of care was discussed with the patient and they have no further questions. If there are any questions about the care of this patient during this hospitalization, please do not hesitate to reach out and contact the [facility] office for hospitalist directly. [id number]/[facility] #: [id number]
== END 2018-12-18 14:45 | disposition home or self-care (01) ==
LOC: ED 23:01 → MEDTELE 12-15 07:58
PROVIDERS: ADMIT Internal Medicine; ATTEND Internal Medicine
DX: E11.65 Type 2 diabetes mellitus with hyperglycemia (principal); E66.01 Morbid (severe) obesity due to excess calories; F64.9 Gender identity disorder, unspecified; N76.0 Acute vaginitis; K59.00 Constipation, unspecified; Z79.899 Other long term (current) drug therapy; Z68.41 Body mass index [BMI] 40.0-44.9, adult; R10.9 Unspecified abdominal pain; R11.2 Nausea with vomiting, unspecified; Z88.0 Allergy status to penicillin
CPT/HCPCS: 36415; 80048; 80053; 81003; 81015; 82533; 82803; 82947; 83036; 83525; 83605; 84681; 84702; 85025; 85610; 86341; 87480; 87491; 87510; 87591; 87661; 99284; A9270-GY; G0378; J0690; J1815; J1885; J2405

== ENCOUNTER 2018-12-19 18:42 | Emergency (ER) | payer OTHER ==
--- NOTE | 2018-12-19 19:21 | ED ---
Altered Mental Status - HPI Summary HPI Summary: Patient complains of elevated BGL, lethargy, lightheadedness, numbness and tingling to bilateral feet, hands and face starting at 4 PM. Patient states symptoms are somewhat resolved BAG FILLER. Also complains of blurred vision 3 weeks. Recent new diagnosis of diabetes mellitus 2 days ago, just started on metformin and insulin. Patient states he is compliant. Symptoms started while she was preparing dinner. Denies fever, cough, sore throat, CP, SOB, N/C/D, abdominal pain, change in urine, change in BM, vaginal symptoms. Medical history is DM 2. - History Of Current Complaint Chief Complaint: EDDiabeticProb Stated Complaint: CONFUSED/NUMBNESS IN FT AND HANDS PER Time Seen by Provider: 12/19/18 19:18 Hx Obtained From: Patient Hx Last Menstrual Period: Pt has an implant, 3 years ago Onset/Duration: Resolved Timing: Lasting Hours Severity Initially: Moderate Character: Lethargy Aggravating Factor(s): Unknown Alleviating Factor(s): Nothing - Allergies/Home Medications Allergies/Adverse Reactions: Allergies Allergy/AdvReac Type Severity Reaction Status Date / Time morphine Allergy Anaphylatic Verified 12/14/18 23:10 Shock Penicillins Allergy Rash Verified 12/14/18 23:10 Home Medications: Home Medications Testosterone Cypionate (NF) 200 mg IM WEEKLY 12/19/18 [History Confirmed ] PMH/Surg Hx/FS Hx/Imm Hx Endocrine/Hematology History: Denies: Hx Diabetes, Hx Thyroid Disease, Hx Anemia Cardiovascular History: Denies: Hx Hypertension GI History: Denies: Hx Jaundice History: Denies: Hx Dialysis Sensory History: Denies: Hx Contacts or Glasses, Hx Hearing Aid Opthamlomology History: Denies: Hx Contacts or Glasses EENT History: Denies: Hx Deafness Neurological History: Reports: Hx Headaches - Surgical History Surgery Procedure, Year, and Place: C-sections x2. Infectious Disease History: No Infectious Disease History: Denies: Traveled Outside the [place] in Last 30 Days - Family History Known Family History: Positive: Diabetes - paternal side - Social History Alcohol Use: None Hx Substance Use: No Substance Use Type: Reports: None Hx Tobacco Use: No Smoking Status (MU): Never Smoked Tobacco Review of Systems Positive: Fatigue Eyes: Negative ENT: Negative Cardiovascular: Negative Respiratory: Negative Gastrointestinal: Negative Genitourinary: Negative Musculoskeletal: Negative Skin: Negative Neurological: Negative Psychological: Normal All Other Systems Reviewed And Are Negative: Yes Physical Exam - Summary Physical Exam Summary: Neuro exam normal. Abdomen soft nontender. Patient slightly somnolent. Triage Information Reviewed: Yes Vital Signs On Initial Exam: Initial Vitals Temp Pulse Resp BP Pulse Ox 97.5 F 74 18 130/97 99 12/19/18 18:44 12/19/18 18:44 12/19/18 18:44 12/19/18 18:44 12/19/18 18:44 Vital Signs Reviewed: Yes Appearance: Positive: Well-Appearing Skin: Positive: Warm Head/Face: Positive: Normal Head/Face Inspection Eyes: Positive: Normal Neck: Positive: Supple Respiratory/Lung Sounds: Positive: Clear to Auscultation Cardiovascular: Positive: Normal Abdomen Description: Positive: Nontender Musculoskeletal: Positive: Normal Neurological: Positive: Normal Psychiatric: Positive: Normal AVPU Assessment: Alert - [place] Coma Scale Best Eye Response: 4 - Spontaneous Best Motor Response: 6 - Obeys Commands Best Verbal Response: 5 - Oriented Coma Scale Total: 15 Diagnostics - Vital Signs Vital Signs Temp Pulse Resp BP Pulse Ox 12/19/18 18:44 97.5 F 74 18 130/97 99 - Laboratory Lab Results: Lab Results 12/19/18 Range/Units 18:52 POC Glucose (mg/dL) 128 H (70-100) mg/dL Result Diagrams: 12/19/18 19:38 12/19/18 19:38 Lab Statement: Any lab studies that have been ordered have been reviewed, and results considered in the medical decision making process. Altered Mental Statu Course/Dx - Course Course Of Treatment: Patient complains of elevated BGL, lethargy, lightheadedness, numbness and tingling to bilateral feet, hands and face starting at 4 PM. Patient states symptoms are somewhat resolved BAG FILLER. Also complains of blurred vision 3 weeks. Recent new diagnosis of diabetes mellitus 2 days ago, just started on metformin and insulin. Patient states he is compliant. Symptoms started while she was preparing dinner. Denies fever, cough, sore throat, CP, SOB, N/C/D, abdominal pain, change in urine, change in BM, vaginal symptoms. Medical history is DM 2. Vital signs within normal limits. Labs unremarkable including glucose levels. No indication of DKA. EKG sinus rhythm, similar to prior, normal QUAN. Patient felt better after 1 L normal saline. Patient advised to follow-up with primary care for possible adjustment in diabetes management. Patient understands and approves of plan. - Diagnoses Provider Diagnoses: Diabetes mellitus, Altered mental status Discharge ED - Sign-Out/Discharge Documenting (check all that apply): Patient Departure Patient Received Moderate/Deep Sedation with Procedure: No - Discharge Plan Condition: Stable Disposition: HOME Patient Education Materials: Type 2 Diabetes in Adults: New Diagnosis (ED) Referrals: No Primary Care Phys,NOPCP [Primary Care Provider] - Gordy León MD [Medical Doctor] - Elle Braden PA [Physician Associate Professor Of Biblical Studies] - Paige PAYTON,Roxana Hamilton [Medical Doctor] - Additional Instructions: Follow-up with primary care for adjustment of diabetes management. You may be dropping your blood sugar levels too quickly with your current management plan. You may also follow-up with endocrinology, there are several listed here. Return to the ED for any new or worsening symptoms. - Billing Disposition and Condition Condition: STABLE Disposition: Home
[2018-12-19] MEDS ORDERED: NS 0.9% 1000 ML** 1,000 ML IV ONE (19:37)
[2018-12-19] MEDS ORDERED: Ibuprofen TAB* 600 MG PO ONE (19:37)
[2018-12-19] MEDS ORDERED: Ondansetron INJ* 2 MG/ML VIAL IV ONE (19:37)
[2018-12-19 19:50] LABS: ABS Basophils 0.1 10^3/ul (0-0.2); ABS Eosinophils 0.2 10^3/ul (0-0.6); ABS Lymphocytes 3.6 10^3/ul (1.0-4.8); ABS Monocytes 0.5 10^3/ul (0-0.8); ABS Neutrophils 3.6 10^3/ul (1.5-7.7); Eosinophil % 2.1 %; Hematocrit 41 % (35-47); Hemoglobin 13.2 g/dL (12.0-16.0); Lymphocyte % 44.8 %; Mean Corpuscular HGB Conc 32 g/dL (31-36); Mean Corpuscular Hemoglobin 27 pg (27-31); Mean Corpuscular Volume 84 fL (80-97); Mean Platelet Volume 9.8 fL (7.4-10.4); Nucleated Red Blood Cells % 0.1; Platelet Count 238 10^3/uL (150-450); Red Blood Count 4.84 10^6 /uL (3.70-4.87); Red Cell Distribution Width 16 % (10-15); White Blood Count 7.9 10^3/uL (3.5-10.8)
[2018-12-19 20:11] LABS: ALT 39 U/L (7-52); AST 44 U/L (13-39); Albumin 3.6 g/dL (3.2-5.2); Albumin/Globulin Ratio 1.3 (1-3); Alkaline Phosphatase 73 U/L (34-104); Anion Gap 5 mmol/L (2-11); BUN/Creatinine Ratio 10.3 (8-20); Blood Urea Nitrogen 7 mg/dL (6-24); C Reactive Protein 2.77 mg/L (<8.01); CO2 Carbon Dioxide 28 mmol/L (22-32); Chloride 105 mmol/L (101-111); EGFR African American 123.8 (>60); EGFR Non-African American 102.3 (>60); Globulin 2.7 g/dL (2-4); Glucose 141 mg/dL (70-100); Potassium 3.8 mmol/L (3.5-5.0); Sodium 138 mmol/L (135-145); Total Protein 6.3 g/dL (6.4-8.9)
[2018-12-19 20:16] LABS: HCG Pregnancy < 0.60 mIU/mL
[2018-12-19 20:46] LABS: Urine Appearance Clear; Urine Bilirubin Negative (Negative); Urine Blood Negative (Negative); Urine Color Straw; Urine Glucose Negative (Negative); Urine Ketones Negative (Negative); Urine Nitrite Negative (Negative); Urine Protein Negative (Negative); Urine Specific Gravity 1.006 (1.010-1.030); Urine Urobilinogen Negative (Negative)
[2018-12-19 23:20] VITALS: BP 109/57
== END 2018-12-19 22:58 | disposition home or self-care (01) ==
LOC: ED 18:42
DX: E11.9 Type 2 diabetes mellitus without complications (principal); R41.82 Altered mental status, unspecified; R42 Dizziness and giddiness; R20.0 Anesthesia of skin; Z88.0 Allergy status to penicillin; Z79.899 Other long term (current) drug therapy; R53.83 Other fatigue; R51 Headache
CPT/HCPCS: 36415; 80053; 81003; 82803; 83605; 83690; 84484; 84702; 85025; 86140; 93005; 96361; 96374; 99283; A9270-GY; J2405